=== PATIENT | female | born 1990 | race Caucasian/White ===

== ENCOUNTER → 2016-11-19 | Outpatient (CLI) | payer BC ==
[2016-11-19 18:29] VITALS: BP 130/77; PULSE 98; TEMP 98.5
== END ==
LOC: EUO 18:22 → COL.ER 18:22
DX: Z20.2 Contact with and (suspected) exposure to infections with a predominantly sexual mode of transmission (principal); Z87.448 Personal history of other diseases of urinary system
CPT/HCPCS: J0696